=== PATIENT | female | born 1950 | race Caucasian/White ===

== ENCOUNTER → 2020-06-12 09:18 | Outpatient (REF) | payer MEDICARE, OTHER, SELFPAY | LOC: ANHLAB 09:18 | PROVIDERS: PCP Family Medicine; Visit Provider Surgery Plastic and Reconstructive Surgery | DX: D17.22 Benign lipomatous neoplasm of skin and subcutaneous tissue of left arm (principal) | CPT/HCPCS: 88304 ==

== ENCOUNTER 2021-08-25 08:18 | Emergency (ER) | payer MEDICARE, OTHER, SELFPAY ==
--- NOTE | ~2021-08-25 | US_ITS ---
EXAMINATION: US venous doppler [facility] DATE: 08/25/2021 08:57 INDICATION: Left lower limb pain. TECHNIQUE: Grayscale ultrasound images without and with compression and Doppler ultrasound images of the left lower extremity veins were obtained. COMPARISON: None. FINDINGS: The visualized portions of left common femoral vein, profunda (deep) femoral vein, femoral vein, popl iteal vein, peroneal veins, posterior tibial veins, and greater saphenous vein outflow are patent. IMPRESSION: 1. No deep venous thrombosis. Reviewed, dictated and finalized at location B. E OIL PUMPER
[2021-08-25 08:21] VITALS: RESP 14; TEMP 36.8
--- NOTE | 2021-08-25 08:33 | ED.LOWEXIN ---
HPI - Extremity Injury (Lower) General Chief Complaint: Extremity Injury, Lower Stated Complaint: left leg Time Seen by Provider: 08/25/21 08:24 Source: patient Mode of arrival: ambulatory Limitations: no limitations History of Present Illness HPI Narrative: Patient is a 70-year-old female complaining of left leg pain, 9 out of 10, aching, nonradiating started this morning. Patient denies any chest pain, shortness of breath, calf pain or swelling, fever or chills. Patient denies any injury to the area. Related Data Home Medications Medication Instructions Recorded Confirmed citalopram 10 mg tablet 10 mg PO DAILY 03/25/20 03/19/21 raloxifene 60 mg tablet 60 mg PO .twice weekly tablet 09/29/20 03/19/21 brimonidine 0.025 % eye drops 1 drp EACH EYE QID PRN 03/19/21 03/19/21 Allergies Allergy/AdvReac Type Severity Reaction Status Date / Time Penicillins Allergy Unknown unknown Verified 08/25/21 08:24 pseudoephedrine AdvReac Severe lethargy Verified 08/25/21 08:24 [From Actifed] triprolidine AdvReac Severe lethargy Verified 08/25/21 08:24 levofloxacin [From Levaquin] AdvReac Intermediate leg pain Verified 08/25/21 08:24 Review of Systems Review of Systems: All systems reviewed & are unremarkable except as noted in HPI and below Constitutional: Constitutional: Denies body ache(s), Denies chills, Denies excessive sweating, Denies fatigue, Denies fever(s), Denies headache(s), Denies lethargy, Denies malaise, Denies weakness and Denies weight loss Eyes: Eyes: Denies blurry vision, Denies change in vision and Denies loss of vision ENT: Denies dizziness, Denies ear discharge, Denies headache(s), Denies lip swelling, Denies epistaxis, Denies nasal congestion, Denies neck pain, Denies throat swelling and Denies tongue swelling Cardiovascular: Cardiovascular: Denies chest pain, Denies chest pain at rest, Denies chest pain with activity, Denies diaphoresis, Denies rapid heart rate, Denies edema, Denies irregular heart rhythm, Denies lightheadedness, Denies palpitations, Denies dyspnea and Denies dyspnea on exertion Respiratory: Respiratory: Denies chest congestion, Denies cough, Denies hemoptysis, Denies dyspnea and Denies dyspnea on exertion Gastrointestinal: Gastrointestinal: Denies abdominal pain, Denies melena, Denies hematochezia, Denies diarrhea, Denies nausea, Denies vomiting and Denies hematemesis Musculoskeletal: Musculoskeletal: Denies abnormal gait, Denies deformity, Denies joint swelling, Denies limited range of motion, Denies neck pain and Denies numbness Neurologic: Denies Abnormal speech present, Denies abnormal gait, Denies confusion, Denies dizziness, Denies headache(s), Denies focal weakness, Denies loss of vision, Denies numbness, Denies Other visual disturbances, Denies Sensory deficit (Neuro) and Denies weakness Psychiatric: Psychiatric: Denies confusion, Denies depression, Denies auditory hallucinations, Denies homicidal ideation and Denies suicidal ideation Endocrine: Endocrine: Denies cold intolerance, Denies excessive sweating, Denies fatigue, Denies heat intolerance and Denies palpitations Hematologic/Lymphatic: Hematologic/Lymphatic: Denies easy bleeding and Denies easy bruising Allergic/Immunologic: Allergic/Immunologic: Denies lip swelling, Denies throat swelling and Denies tongue swelling PMFSH Past Medical History Medical History (Updated 08/25/21 @ 09:35 by Joss Britton MD) Allergic rhinitis Attention deficit hyperactivity disorder (ADHD), predominantly inattentive type Hypoglycemia Surgical History Surgical History History of cosmetic surgery liposuction History of tonsillectomy Family History Family History Other Cerebrovascular accident Diabetes mellitus Family history of congestive heart failure Family history of emphysema Family history of malignant neoplasm of lena
[2021-08-25] MEDS: HYDROcodone/acetaminophen (*CRX) 5-325 MG TABLET 1 TAB PO (09:52)
[2021-08-25] MEDS: KETOROLAC 30 MG/ML VIAL (*BKC) IM (09:53)
[2021-08-25] MEDS: diazePAM (*CRX) 5 MG TABLET PO (09:57)
[2021-08-25 09:59] VITALS: BP 138/85; PULSE 88; RESP 19; O2SAT 97
== END 2021-08-25 09:59 | disposition home or self-care (01) ==
PROVIDERS: Emergency Provider Emergency Medicine; PCP Family Medicine
DX: M79.605 Pain in left leg (principal)
CPT/HCPCS: 93971; 96372; 99284; A9270; J1885

== ENCOUNTER → 2021-09-04 11:50 | Outpatient (CLI) | payer MEDICARE, OTHER, SELFPAY ==
--- NOTE | ~2021-09-04 | XR_ITS ---
EXAMINATION: XR lumbar spine 2-3V DATE: 09/04/2021 12:08 INDICATION: Sciatica, unspecified side TECHNIQUE: Anteroposterior and lateral views of the lumbar spine, and cone-down lateral view of the l umbosacral junction were obtained. COMPARISON: None. FINDINGS: There is no fracture, dislocation, or subluxation. The vertebral body heights are maintaine d. There is mild loss of intervertebral disc space height at L5-S1. Moderate facet osteoarthritis is noted in the lower lumbar spine. The bowel gas pattern is normal. There is a moderate volume of colon ic stool. IMPRESSION: 1. Mild lumbar spondylosis without acute findings. Reviewed, dictated and finalized at location F. E DIGGER
--- NOTE | ~2021-09-04 | XR_ITS ---
EXAMINATION: XR sacroiliac joints min 3V INDICATION: Sciatica, unspecified side TECHNIQUE: Three views of the sacroiliac joints are obtained. COMPARISON: None available FINDINGS: Bone alignment is normal. There is no fracture. No abnormal sclerosis or erosion are noted in the sacroiliac joints. IMPRESSION: 1. No acute osseous abnormality. Reviewed, dictated and finalized at location F. STILL OPERATOR
== END ==
PROVIDERS: PCP Family Medicine; Visit Provider Physician Assistant
DX: M54.30 Sciatica, unspecified side (principal); M47.896 Other spondylosis, lumbar region
CPT/HCPCS: 72100; 72202

== ENCOUNTER → 2022-03-22 09:28 | Outpatient (CLI) | payer MEDICARE, SELFPAY ==
--- NOTE | ~2022-03-22 | CT_ITS ---
EXAMINATION: CT brain & sinus wo con DATE: 03/22/2022 09:47 INDICATION: Dizziness, vertigo, nausea and vomiting. Giddiness. TECHNIQUE: Computed tomography (CT) of the head and sinuses was performed without intravenous contras t. The mA was adjusted according to patient size. Iterative reconstruction technique was employed. Ex am dose: 674.51 mGy-cm total exam DLP. COMPARISON: 02/22/[address] sinuses FINDINGS: Bilateral carotid siphon internal carotid artery calcifications. There is nonspecific dimin ished attenuation of the cerebral white matter, likely due to chronic small vessel ischemic changes. There is cerebral cortical volume loss, most prominent in the frontal regions. Mild cerebellar volume loss. No intracranial mass lesion or hemorrhage or cerebrovascular accident is detected. No midline shift o r mass effect. The orbital contents are unremarkable. There is rightward deviation of the nasal septum. The nasal turbinates are moderately prominent in size bilaterally. Intralamellar cell of both middle nasal turbinates. The ostiomeatal units are patent. The mastoid air cells and paranasal sinuses are normally developed and aerated. Middle and inner ear apparatus appear normal bilaterally. No fracture or bone destruction of the cranial vault. IMPRESSION: Cerebral atherosclerosis and chronic small vessel ischemic changes of the cerebral white matter No acute intracranial finding Rightward deviation of nasal septum Intralamellar cell of both middle nasal turbinates Patent paranasal sinuses, ostiomeatal units and mastoid air cells Reviewed, dictated and finalized at Location A. Reviewed, dictated and finalized at location B.
== END ==
PROVIDERS: PCP Family Medicine; Visit Provider Physician Assistant Medical
DX: R42 Dizziness and giddiness (principal); R11.2 Nausea with vomiting, unspecified; I67.2 Cerebral atherosclerosis; J34.2 Deviated nasal septum
CPT/HCPCS: 70450; 70486

== ENCOUNTER 2025-06-22 14:32 | Emergency (ER) | payer MEDICARE, SELFPAY ==
[2025-06-22 14:39] VITALS: BP 131/81; PULSE 78; RESP 16; TEMP 36.6; O2SAT 98
--- NOTE | 2025-06-22 14:43 | ED_ITS ---
HPI - General Adult General Chief complaint: Ear Stated complaint: Ear Pain/Vertigo Time Seen by Provider: 06/22/25 14:44 Source: patient Mode of arrival: ambulatory Limitations: no limitations History of Present Illness HPI narrative: 74-year-old female patient presents to the [facility] with complaints of ear fullness and vertigo. Patient was seen at a.m. the urgent care therapy [facility] on Monday. Patient states that she was told she had an ear infection was given an antibiotic of doxycycline, meclizine and Zofran. Patient states she is here today because she is running out of the Zofran and still has some nausea due to the dizziness. Patient states she is significantly better than when she was seen Monday but is still having trouble hearing feels like her ears are full and still having the dizziness at times. Patient states the dizziness is better when she is lying down. Denies fevers body aches or chills. Denies chest pain or shortness of breath. Patient states she does have a appointment with her primary doctor on Monday. Related Data Home Medications ?Medication ?Instructions ?Recorded ?Confirmed ?Last Taken ?Type brimonidine 0.025 % eye drops 1 drp EACH EYE QID PRN 0 03/19/21 08/16/23 Unknown History lifitegrast 5 % eye drops in a 1 drp EACH EYE QAM AND QPM 11/19/24 Unknown History dropperette (Xiidra) perfluorohexyloctane (PF) 100 % 1 drp EACH EYE QID 04/07 Unknown History eye drops (Miebo (PF)) citalopram 10 mg tablet mg 06/22/25 Unknown History corticotropin 40 unit/0.5 mL unit subcut 06/22/25 Unk nown History subcutaneous pen injector (Acthar Selfject) doxycycline hyclate 100 mg capsule mg 06/22/25 Unknow n History hydroxyzine HCl 10 mg tablet mg 06/22/25 Unknown Hist ory meclizine 25 mg tablet mg 06/22/25 Unknown History ondansetron 4 mg disintegrating mg 06/22/25 Unknown H istory tablet Allergies Allergy/AdvReac Type Severity Reaction Status Date / Time Penicillins Allergy Unknown unknown Verified 06/22/25 14:37 pseudoephedrine (From AdvReac Severe lethargy Verified 06/22/25 14:37 Actifed) triprolidine AdvReac Severe lethargy Verified 06/22/25 14:37 levofloxacin (From Levaquin) AdvReac Intermediate leg pain Verified 06/22/25 14:37 Review of Systems Review of Systems: CONSTITUTIONAL: Denies fever, chills, or sweats. EYES: Denies visual changes, redness, or discharge. ENT: Denies rhinorrhea, congestion, sore throat, Positive bilateral otalgia. CARDIOVASCULAR: Denies chest pain, palpitations, or edema. RESPIRATORY: Denies cough or dyspnea. GASTROINTESTINAL: Denies abdominal pain, positive nausea, denies vomiting, or diarrhea. GENITOURINARY: Denies dysuria or hematuria. SKIN: Denies rash or itching. MUSCULOSKELETAL: Denies back pain, joint pain, or myalgia. NEUROLOGIC: Denies headache, numbness, or weakness. positive dizziness PSYCHIATRIC: Denies anxiety or depression. [facility] Past Medical History Medical History Hypoglycemia Traumatic injury of head Screening, lipid Pneumonia of right lower lobe due to infectious organism Pain of right thumb Other seasonal allergic rhinitis Neck and shoulder pain Myalgia Lower respiratory tract infection Left sided sciatica Left acute otitis media Chronic fatigue, unspecified Cough Boil of buttock Body mass index [BMI] 32.0-32.9, adult (11/13/18) Body mass index [BMI] 31.0-31.9, adult (02/22/19) Body mass index [BMI] 30.0-30.9, adult (02/16/17) Bilateral acute serous otitis media Arthralgia Ankle swelling Acute pain of both shoulders Acute non-recurrent sinusitis Acute bronchitis, unspecified Peripheral neuropathy Conjunctivitis Shoulder pain, right Anxiety Vertigo Hypoglycemia Allergic rhinitis Attention deficit hyperactivity disorder (ADHD), predominantly inattentive type Surgical History Surgical History History of cosmetic surgery liposuction History of tonsillectomy Family History Family History Other Cerebrovascular accident Diabetes mellitus Family history of congestive heart failure Family history of emphysema Family history of malignant neoplasm of breast in first degree relative Hypertension Social History Social History Second hand tobacco smoke exposure: No Alcohol intake: never Substance use: never Substance use type: does not use Lack of Transportation: No Lack of Food: Never True Current Housing: I Have Housing Concerned About Future Housing: No Difficulty Paying Gas/Electric Bills: No Difficulty Paying for Meds: No Currently Unemployed: No Education: Master's Degree or Higher Difficulty w/ Childcare or Family Care: No Living arrangements: with family Gender identity (if verbalized by the patient): Female Spiritual care concerns: No Agree to blood products: Yes Comments At the time of my signature I agree with nursing past medical history, surgical, social, and family history. There is no relevant family history pertinent to the presenting complaint. Exam Narrative: GENERAL: Well-appearing, well-nourished, and in no acute distress. HEAD: Normocephalic, atraumatic. EYES: PERRLA and EOMI. ENT: Nares clear, no rhinorrhea or epistaxis. Mucous membranes moist. posterior pharynx with no erythema, tonsillar enlargement, exudates or lesions present. The bilateral TMs do appear to have fluid behind them but I do not see any obvious erythema no foreign bodies the canals. NECK: Supple. No lymphadenopathy CHEST: Clear to auscultation. No respiratory distress. HEART: Regular rate and rhythm. No murmur heard. Normal peripheral pulses. ABDOMEN: Soft, nontender, nondistended, normal active bowel sounds. EXTREMITIES: Normal range of motion. No edema. SKIN: Warm, dry, no rash. NEURO: No focal deficits. Alert and oriented x3. Course Course Level of Care: Express Care Visit Vital Signs Vital signs: Vital Signs Temperature 36.6 C 06/22/25 14:39 Pulse Rate 78 06/22/25 14:39 Respiratory Rate 16 06/22/25 14:39 Blood Pressure 131/81 06/22/25 14:39 Pulse Oximetry 98 06/22/25 14:39 Temperature 36.6 C 06/22/25 14:39 Pulse Rate 78 06/22/25 14:39 Respiratory Rate 16 06/22/25 14:39 Blood Pressure 131/81 06/22/25 14:39 Pulse Oximetry 98 06/22/25 14:39 Vital signs reviewed. The patient has been informed that they may have pre-hypertension or Hypertension based on a BP reading in the department. I recommend that the patient call the primary care provider listed on their discharge instructions or a physician of their choice this week to arrange follow up for further evaluation of possible pre-hypertension or Hypertension Medical Decision Making MDM Narrative Medical decision making narrative: Discussed with patient to continue taking the doxycycline as prescribed. Continue to take the meclizine to help with the dizziness and may also continue using the Flonase twice a day. Discussed with her on the proper way to use a nasal spray as well she May 1 also consider taking another antihistamine such as Zyrtec, Claritin or Estrella. Discussed with patient that if she continues to have issues or she feels like her dizziness is worse she is starting to vomit or she falls and hits her head she needs to be seen in the ER for further evaluation. Discussed with patient to continue to follow-up with her doctor as scheduled on Monday. Patient verbalized understanding denies any other questions or concerns at this time Differential Diagnosis Differential Diagnosis: Differential diagnosis: Otitis media, otitis externa, perforated TM, infection of the outer ear, foreign body or cerumen impaction, ruptured TM, acute mastoiditis, ligament otitis externa, dehydration, pneumonia, sepsis, dental or intraoral infection, TMJ dysfunction Vital Signs Vital Signs: Vital Signs Temperature 36.6 C 06/22/25 14:39 Pulse Rate 78 06/22/25 14:39 Respiratory Rate 16 06/22/25 14:39 Blood Pressure 131/81 06/22/25 14:39 Pulse Oximetry 98 06/22/25 14:39 Temperature 36.6 C 06/22/25 14:39 Pulse Rate 78 06/22/25 14:39 Respiratory Rate 16 06/22/25 14:39 Blood Pressure 131/81 06/22/25 14:39 Pulse Oximetry 98 06/22/25 14:39 Critical Care Time Critical Care Time Critical Care Time: No Discharge Plan Discharge Clinical Impression: Vertigo, Fluid level behind tympanic membrane of both ears Patient Disposition: Home Condition: Stable Instructions: Antibiotic Form, Benign Paroxysmal Positional Vertigo (DC) Additional Instructions: An ear infection is also called otitis media. An ear infection may be caused by blocked or swollen eustachian tubes. Eustachian tubes connect the middle ear to the back of the nose and throat. They drain fluid from the middle ear. With an ear infection, fluid builds up and is infected by germs. The germs grow easily in fluid trapped behind the eardrum. DISCHARGE INSTRUCTIONS: Call 911 or have someone call 911 for the following: You have a seizure. Return to the emergency department if: You have a fever and a stiff neck. Contact your healthcare provider if: Your ear pain gets worse or does not go away, even after treatment. The outside of your ear is red or swollen. You are vomiting or have diarrhea. You have fluid coming from your ear. You have questions or concerns about your condition or care. Medicines: Acetaminophen decreases pain and fever. It is available without a doctor's order. Ask how much to take and how often to take it. Follow directions. Read the labels of all other medicines you are using to see if they also contain acetaminophen, or ask your doctor or pharmacist. Acetaminophen can cause liver damage if not taken correctly. Do not use more than 4 grams (4,000 milligrams) total of acetaminophen in one day. NSAIDs , such as ibuprofen, help decrease swelling, pain, and fever. This medicine is available with or without a doctor's order. NSAIDs can cause stomach bleeding or kidney problems in certain people. If you take blood thinner medicine, always ask your healthcare provider if NSAIDs are safe for you. Always read the medicine label and follow directions. Ear drops help treat your ear pain. Antibiotics help treat a bacterial infection that caused your ear infection. Take your medicine as directed. Contact your healthcare provider if you think your medicine is not helping or if you have side effects. Tell him or her if you are allergic to any medicine. Keep a list of the medicines, vitamins, and herbs you take. Include the amounts, and when and why you take them. Bring the list or the pill bottles to follow-up visits. Carry your medicine list with you in case of an emergency. Prevent an ear infection: Wash your hands often. Use soap and water. Wash your hands after you use the bathroom, change a child's diapers, or sneeze. Wash your hands before you prepare or eat food. Handwashing Stay away from people who are ill. Some germs are easily and quickly spread through contact. Patient Language: Azerbaijani Prescriptions: New ondansetron 4 mg tablet,disintegrating 4 mg PO Q8H PRN (Reason: nausea and vomiting) Qty: 10 0RF No Action doxycycline hyclate 100 mg capsule citalopram 10 mg tablet meclizine 25 mg tablet hydroxyzine HCl 10 mg tablet ondansetron 4 mg tablet,disintegrating Acthar Selfject 40 unit/0.5 mL pen injector SUBCUT Miebo (PF) 100 % drops 1 drp EACH EYE QID Xiidra 5 % dropperette 1 drp EACH EYE QAM AND QPM Rx Instructions: administer approximately 12 hours apart brimonidine 0.025 % drops 1 drp EACH EYE QID PRN citalopram 20 mg tablet 20 mg PO .COMPLEX Qty: 30 3RF Rx Instructions: 20 mg orally T, TH, Sat; alprazolam 0.25 mg tablet 0.25 mg PO QHS PRN (Reason: anxiety) Qty: 14 0RF fluticasone propionate [Flonase Allergy Relief] 50 mcg/actuation spray,suspension 2 spray intranasal DAILY Qty: 48 3RF Rx Instructions: administer into each nostril azelastine 137 mcg (0.1 %) spray,non-aerosol 137 mcg NASAL Q12H Qty: 90 3RF Rx Instructions: administer into each nostril Follow-up/Referrals: PHYSICIAN,STUDENT OUTREACH COORDINATOR [Primary Care Provider, Internal Medicine] Time of Disposition: 15:07
== END 2025-06-22 15:10 | disposition home or self-care (01) ==
PROVIDERS: Emergency Provider Nurse Practitioner Family
DX: R42 Dizziness and giddiness (principal); H73.893 Other specified disorders of tympanic membrane, bilateral; F41.9 Anxiety disorder, unspecified
CPT/HCPCS: 99213; G0463